=== PATIENT | female | born 1950 | race Caucasian/White ===

== ENCOUNTER 2017-11-30 08:53 | Day surgery (SDC) | payer MEDICARE ==
[2017-11-30] MEDS ORDERED: LIDOCAINE 1% MDV 20ML VIAL SQ (09:00)
[2017-11-30 09:33] LABS: HEMATOCRIT 42.6 % (36.0-47.0); MEAN CORPUSCULAR HEMOGLOBIN 31.1 pg (27.0-33.0); MEAN CORPUSCULAR HGB CONC 35.2 g/dl (32.0-36.5); MEAN CORPUSCULAR VOLUME 88.4 fl (80.0-96.0); PLATELET COUNT, AUTOMATED 225 10^3/uL (150-450); RED BLOOD COUNT 4.82 10^6/uL (4.00-5.40); RED CELL DISTRIBUTION WIDTH 11.9 % (11.5-14.5); WHITE BLOOD COUNT 11.8 10^3/uL (4.0-10.0)
[2017-11-30] MEDS ORDERED: LIDOCAINE 2% INJ 100 MG/5 ML SDV (FOR ANES.) As Ordered (09:52)
[2017-11-30] MEDS ORDERED: ROCURONIUM BROMIDE 50 MG/5 ML VIAL As Ordered (09:52)
[2017-11-30] MEDS ORDERED: KETOROLAC 60 MG/2 ML VIAL (J1885) As Ordered (09:52)
[2017-11-30] MEDS ORDERED: PROPOFOL 200 MG/20 ML VIAL As Ordered (09:52)
[2017-11-30] MEDS ORDERED: ONDANSETRON 4MG/2ML VIAL (J2405) As Ordered (09:52)
[2017-11-30] MEDS ORDERED: dexameTHASONE 4 MG/ML 1ML VIAL (J1100) As Ordered (09:52)
[2017-11-30 10:14] LABS: BEDSIDE GLUCOSE 228 MG/DL (80-115)
[2017-11-30] MEDS: LR 1,000 ML IV ×4 (10:26→23:29)
[2017-11-30] MEDS ORDERED: fentaNYL 250 MCG/5 ML INJECTION (J3010) As Ordered (12:01)
[2017-11-30] MEDS ORDERED: MIDAZOLAM INJ 2 MG/2 ML VIAL (J2250) As Ordered (12:01)
[2017-11-30] MEDS ORDERED: HYDROmorphone HCL 2 MG/ML 1ML VIAL (J1170) As Ordered (14:47)
[2017-11-30] MEDS: VASOPRESSIN INJ 20 UNITS/ML VIAL As Ordered (14:50)
[2017-11-30] MEDS ORDERED: NEOSTIGMINE 10 MG/10 ML VIAL (J2710) As Ordered (14:54)
[2017-11-30] MEDS ORDERED: GLYCOPYRROLATE INJ 0.2 MG/ML 2 ML VIAL As Ordered (14:54)
[2017-11-30] MEDS ORDERED: MORPHINE 1MG/ML IN 0.9% NACL 100ML IV BAG As Ordered (15:07)
[2017-11-30] MEDS ORDERED: NALOXONE INJ 0.4 MG/1 ML VIAL (J2310) IV (16:15)
[2017-11-30] MEDS ORDERED: PERCOCET 5MG/325MG TAB PO (16:15)
[2017-11-30] MEDS ORDERED: METOCLOPRAMIDE INJ 10MG/2ML VIAL (J2765) IV (16:15)
[2017-11-30] MEDS ORDERED: MORPHINE 1MG/ML IN 0.9% NACL 100ML IV BAG IV (16:15)
[2017-11-30] MEDS ORDERED: ONDANSETRON 4MG/2ML VIAL (J2405) IV (16:15)
[2017-11-30] MEDS ORDERED: NALBUPHINE HCL 10 MG/ML AMP (J2300) IV (16:15)
[2017-11-30] MEDS ORDERED: fentaNYL 100 MCG/2 ML INJECTION (J3010) IV (16:15)
[2017-11-30] MEDS ORDERED: EPIDURAL/PCA KEYS XX (16:15)
[2017-11-30] MEDS ORDERED: diphenhydrAMINE INJ 50MG/ML VIAL (J1200) IV (16:15)
[2017-11-30] MEDS: metFORMIN (GLUCOPHAGE) 500 MG TAB PO (18:55)
[2017-11-30] MEDS ORDERED: PILL CRUSHER/CUTTER 1 EACH XX (19:00)
[2017-11-30] MEDS: METOPROLOL SUCC (TopROL XL) 50MG **XL** TAB PO (20:43)
[2017-12-01] MEDS: IBUPROFEN 600 MG TAB PO (05:54)
[2017-12-01] MEDS ORDERED: NORCO, ANEXSIA 5/325MG TABLET (HYDROcodone/ACETAMINOPHEN) PO (06:00)
[2017-12-01 07:18] LABS: HEMATOCRIT 36.9 % (36.0-47.0); HEMOGLOBIN 12.8 g/dl (12.0-15.5); MEAN CORPUSCULAR HEMOGLOBIN 30.8 pg (27.0-33.0); MEAN CORPUSCULAR HGB CONC 34.7 g/dl (32.0-36.5); MEAN CORPUSCULAR VOLUME 88.9 fl (80.0-96.0); PLATELET COUNT, AUTOMATED 209 10^3/uL (150-450); RED BLOOD COUNT 4.15 10^6/uL (4.00-5.40); RED CELL DISTRIBUTION WIDTH 11.9 % (11.5-14.5); WHITE BLOOD COUNT 16.2 10^3/uL (4.0-10.0)
[2017-12-01] MEDS: LR 1,000 ML IV (07:41)
[2017-12-01] MEDS ORDERED: ASPIRIN 81 MG ENTERIC TAB PO (09:00)
[2017-12-01] MEDS ORDERED: metFORMIN (GLUCOPHAGE) 500 MG TAB PO (21:00)
== END 2017-12-01 09:25 | disposition home or self-care (01) ==
LOC: M SDC 08:53 → M PED 16:20
DX: N81.4 Uterovaginal prolapse, unspecified (principal); I10 Essential (primary) hypertension; E78.00 Pure hypercholesterolemia, unspecified; G47.33 Obstructive sleep apnea (adult) (pediatric); E11.9 Type 2 diabetes mellitus without complications; R32 Unspecified urinary incontinence; E66.9 Obesity, unspecified; Z68.30 Body mass index [BMI] 30.0-30.9, adult; Z88.8 Allergy status to other drugs, medicaments and biological substances; Z79.899 Other long term (current) drug therapy; Z79.82 Long term (current) use of aspirin; Z79.84 Long term (current) use of oral hypoglycemic drugs; Z72.0 Tobacco use; Z78.0 Asymptomatic menopausal state
CPT/HCPCS: 58263

== ENCOUNTER → 2020-12-13 | Outpatient (CLI) | payer MEDICARE ==
[~2020-12-13] MED LIST: ASPI81TA26 PO; LOSA50TA5 PO; METF500T13 PO; METO1TAB7 PO; MOTR200T44 PO; NORC1TAB7 PO
--- NOTE | 2020-12-13 15:35 | REPVR ---
PROCEDURE INFORMATION: Exam: MR Head Without Contrast Exam date and time: 12/13/2020 1:47 PM Age: 70 years old Clinical indication: Other: Hearing loss TECHNIQUE: Imaging protocol: MR of the head without contrast. COMPARISON: No relevant prior studies available. FINDINGS: Brain: There is mild patchy increased T2 signal intensity within the bilateral cerebral periventricular white matter, consistent with chronic microvascular ischemic changes. There are multiple small focal areas of chronic ischemia in bilateral frontal, parietal and periatrial white matter. There is no abnormal diffusion weighted signal intensity to suggest an acute ischemic event. Cerebral ventricles: The ventricular system is not dilated and is appropriate for the patient's age. Bones/joints: Unremarkable. Paranasal sinuses: Normal as visualized. No acute sinusitis. Mastoid air cells: Normal as visualized. No mastoid effusion. Internal auditory canals: The 7th and 8th cranial nerves are normal in thickness and signal intensity bilaterally. No discrete mass or abnormal enhancement is seen to suggest vestibular schwannoma or acoustic neuroma. Orbital cavity: Unremarkable. Soft tissues: Unremarkable. IMPRESSION: 1. No acute infarction, masses or hemorrhage is seen. No acute intracranial abnormality is identified. 2. Diffuse age-related cerebral atrophy and mild chronic microvascular white matter ischemic changes, without evidence of an acute intracranial abnormality. 3. The 7th and 8th cranial nerves are normal in thickness and signal intensity bilaterally. No discrete mass or abnormal enhancement is seen to suggest vestibular schwannoma or acoustic neuroma. Electronically signed by: Stan Barba On 12/13/2020 15:35:28 PM
== END ==
LOC: M RAD 12:31
PROVIDERS: ATTEND Otolaryngology
DX: H90.3 Sensorineural hearing loss, bilateral (principal)